=== PATIENT | male | born 1950 | race Caucasian/White ===

== ENCOUNTER → 2016-10-17 | Outpatient (CLI) | payer BC | LOC: RAD 13:39 | PROVIDERS: ATTEND Nurse Practitioner Family | DX: M25.562 Pain in left knee (principal); M25.462 Effusion, left knee | CPT/HCPCS: 73562 ==

== ENCOUNTER → 2016-10-24 | Outpatient (REF) | payer BC ==
[2016-10-24 11:06] LABS: ANION GAP 16.1 MEQ/L (3-15)
== END ==
LOC: LAB 10:01
PROVIDERS: ATTEND Nurse Practitioner Family
DX: I10 Essential (primary) hypertension (principal); Z85.850 Personal history of malignant neoplasm of thyroid
CPT/HCPCS: 80048; 83036; 84443

== ENCOUNTER → 2016-11-09 | Outpatient (CLI) | payer BC | LOC: RAD 12:09 | PROVIDERS: ATTEND Nurse Practitioner Family | DX: Z85.850 Personal history of malignant neoplasm of thyroid (principal) | CPT/HCPCS: 76536; 84432; 86800 ==

== ENCOUNTER → 2016-11-29 | Outpatient (REF) | payer BC ==
[~2016-11-29] MED LIST: ASPI-345 PO; C250T PO; CARV12.52 PO; CINN500C14 PO; COLE625T PO; DILT240C87 PO; GLUC-132 PO; LORA10TA7 PO; MELA3TAB34 PO; MMT17NA; MULT-55 PO; MULT-868 PO; NIAC1000 PO; OMEG1CAP61 PO; OMEP20CA12 PO; RAMI10CA PO; SITA1TAB6 PO; VITA150T PO; ZINC50TA31 PO; ZOLP12.5 PO; [UNRECOGNIZED DRUG - CODE] PO
[2016-11-29 12:41] LABS: ANION GAP 16.4 MEQ/L (3-15); BASOPHILS % (AUTO) 1 % (0-2); EOSINOPHILS # (AUTO) 0.3 10^3uL; EOSINOPHILS % (AUTO) 4 % (0-4); LYMPHOCYTES # (AUTO) 2.2 X10^3; MEAN CORPUSCULAR HGB CONC 34.9 g/dL (31.0-37.0); MEAN CORPUSCULAR VOLUME 95 FL (80-100); MEAN PLATELET VOLUME 11.2 FL (6.0-9.5); MONOCYTES # (AUTO) 0.7 X10^3; MONOCYTES % (AUTO) 8 % (3-11); NEUTROPHILS # (AUTO) 4.9 X10^3; NEUTROPHILS % (AUTO) 61 % (51-67); PLATELET COUNT 192 10^3uL (150-450); WHITE BLOOD COUNT 8.13 10^3uL (4.0-11.0)
[2016-11-29 12:43] LABS: MEAN CORPUSCULAR HEMOGLOBIN 33.1 PG (26.0-34.0)
== END ==
LOC: LAB 12:18
PROVIDERS: ATTEND Nurse Practitioner Family
DX: Z01.818 Encounter for other preprocedural examination (principal)
CPT/HCPCS: 80048; 85025

== ENCOUNTER 2017-01-02 08:15 | Outpatient (RCR) | payer BC ==
--- NOTE | 2016-12-13 11:20 | PT/OT/ST INITIAL EVALUATION ---
Department of Health and Human Services Form Approved [employer] OMB No. [id number] PLAN OF CARE/ASSESSMENT FOR OUTPATIENT REHABILITATION (Complete for Initial Claims Only) 1. PATIENT'S NAME Aren Chambers 2. ACC # [id number] [facility]. [facility] [id number] 4. PROVIDER NO. [id number] 5. TYPE: PT 6. PRIOR HOSPITALIZATION NA 7. PRIMARY DX Z98.890 status post left knee arthroscopy. 8. SECONDARY DX Left knee pain, left knee stiffness, weakness, and difficulty walking. 9. ONSET DATE Surgery 12/06/2016 10. REFERRAL DATE 12/09/2016 11. SOC. DATE 12/09/2016 12. TIME OF EVAL 1:02 p.m. to 2:00 p.m. 12. REFERRING PHYSICIAN Andrew Houston MD 13. CHARGES/UNITS PT evaluation low complexity 38698 Therapeutic exercise 00693, 2 units Vasopneumatic device 57672, 1 unit 14. G CODES The Lower Extremity Functional Scale rates the patient as [id number] 73.8% limited and the goal is [id number] 0% limited in order to be able to ambulate and perform household duties without deviation. 15. PRIOR LEVEL OF FUNCTION; PERTINENT HISTORY (Prior therapy results, reason for referral.) S: Prior to therapy the patient consented to today's evaluation and treatment. The patient is a 66-year-old male referred to physical therapy by Dr. Houston to address functional limitations secondary to left knee arthroscopy on 12/06/2016. Mechanism of injury: The patient reports that there was no specific injury. He states he had swelling in August and then pain in his left knee began on 10/13/2016, which led him to go to the doctor and they stated he needed a left knee arthroscopy for a meniscus tear. Primary Complaint: Difficulty with standing and walking and left knee pain and tightness. 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 Functional performance/Prior level of function: The patient had swelling starting in August with pain beginning in 10/13/2016, which has limited his mobility and function. Prior to that he was able to do all activities without issues and no pain. Pain level: The patient rates the current pain level as 4 to 5/10. Currently right now 0/10. When having pain, the patient describes it as a sharp pain and can be a pressure and an ache around the proximal knee. The sharp pain is located in the medial knee on the left side. Obstacles to delivery of care: The patient has a pacemaker, so there is not to be any sort of electrical stimulation. Aggravating factors: Include standing and walking. Relieving factors: Include rest. Diagnostic testing: None noted. Past medical history: Includes osteoarthritis, allergies to opioids, diabetes which is controlled, history of papillary thyroid cancer 12/29/10. Recently had some testing and saw his disk and tape machine tender and everything is clear and he is healthy. Also a pacemaker, heart problems including tachycardia, low heart rate and arrhythmia that led to the pacemaker, high blood pressure which is controlled and thyroid issues which included the right side of his thyroid being removed. Past surgical history: A full list of surgeries is in the chart including tonsils and adenoids. A portion of the upper lobe of the left lung, heart catheterization, right thyroid removed, and meniscus tear of the left knee, and left knee scope. Current medications: A full list is in the chart including Coreg CR, sotalol, doxazosin, Lasix, losartan, atorvastatin, amlodipine besylate, Janumet, Ambien CR, Welchol, mometasone furoate nasal spray, Gralise, glyburide, Omeprazole, Metanx, halobetasol propionate ointment, aspirin, zinc, melatonin, loratadine, Systane eye drops, Krill oil, 1 a day multivitamin, super B complex, Osteo Bi-Flex, and glucosamine chondroitin. Leisure activities Include house repairs and yard work. Activity level: Low. Personal health rating: Good. Patient's Goal: The patient's goal for physical therapy is to regain use of his left leg. 16. INITIAL ASSESSMENT/SAFETY PRECAUTIONS/MEDICAL COMPLICATIONS (Level of function at start of care. Be specific, use objective measures, list problems.) O: APPEARANCE, OBSERVATION AND GAIT: The patient comes to the clinic after a left knee scope performed on 12/06/2016 and is not using assistive device and ambulating with only mild deviations. The patient's left knee does appear swollen. He has 2 stitches on his left lower extremity. No drainage and no sign of infection. The patient was educated in elevating his left lower extremity to help with swelling. The patient lives in a home with his . PALPATION: No significant tenderness to palpation is noted of the left lower extremity. SPECIAL TESTS: Bilateral lower extremity negative Homans. RANGE OF MOTION/FLEXIBILITY: Active range of motion of the knees right knee flexion 137 degrees, right knee extension 4 degrees of hyperextension. Left knee flexion 82 degrees, left knee extension lacking 2 degrees of extension. STRENGTH: Manual muscle testing observation of the left lower extremity 3/5. TODAY'S TREATMENT: Includes the initial PT evaluation followed by therapeutic exercise and vasopneumatic device and the patient was given home exercise program handouts. 17. INITIAL POC: (Specify procedures, modalities, short and intermediate goals) A: This patient presents with the diagnosis of left knee arthroscopy with functional limitations of left knee pain, left pain stiffness, weakness, and difficulty walking. The patient is low complexity due to medical history being stable and would benefit from physical therapy in order to decrease swelling in order to gain active range of motion and strength in order to return to activities such as ascending and descending stairs and being on his feet and walking without deviation. PROGNOSIS: The patient has a good prognosis for increased overall functional capacity with regular therapy attendance and compliance with prescribed home exercise program. CONTRAINDICATIONS, PRECAUTIONS AND OBSTACLES TO DELIVERY OF CARE: The patient has a pacemaker and electrostimulation is not to be used due to the patient's history of cancer. Prefer at this time not to use ultrasound. INFORMED CONSENT: The prognosis and goals were discussed with this patient, as well as the expected outcomes and possible risks. The patient agreed to undergo PT evaluation and further treatment. SHORT TERM GOALS: 1. Th patient is to have a decrease in pain in the left knee to less than or equal to 1/10 in 4 weeks in order to ascend and descend steps and ambulate without deviation. 2. The patient is to have an increased in manual muscle testing of the left knee to 4+/5 in order to ascend and descend steps and squat for activity at home including yard work without deviation. 3. The patient is to have an increase in active range of motion of the left knee to 0 to 135 degrees in 4 weeks in order to be able ambulate and get in and out of his car without deviation. 4. The patient is to be independent with a progressive home exercise program. P: Plan to treat this patient 2 times a week for 4 weeks. Treatment to include modalities for pain and inflammation, manual therapy interventions, therapeutic exercise, active and passive range of motion, gait training, balance training, neural reeducation, and patient education and prescription of progressive home exercise program as tolerable. 18. FREQUENCY 2 times per week 19. DURATION 4 weeks 20. FUNCTIONAL LEVEL (End of claim period) 21. PHYSICIAN SIGNATURE ? ON FILE OR ENTER HERE: 22. DATE: I certify the need for these services furnished under this plan of care and if for partial hospitalization. 23. CERTIFICATION FROM THROUGH FORM [id number]
== END 2017-01-16 12:06 | disposition home or self-care (01) ==
LOC: PT 08:15
PROVIDERS: ATTEND Orthopaedic Surgery
DX: Z98.890 Other specified postprocedural states (principal); M25.562 Pain in left knee; M25.662 Stiffness of left knee, not elsewhere classified; R26.2 Difficulty in walking, not elsewhere classified
CPT/HCPCS: 97016; 97110; 97161; G8978; G8979; G8980